=== PATIENT | male | born 1985 | race Caucasian/White ===

== ENCOUNTER 2020-07-06 08:05 | Emergency (ER) | payer OTHER, SELFPAY ==
[2020-07-06 08:13] VITALS: BP 143/64; PULSE 60; RESP 16; TEMP 36.4; O2SAT 100
--- NOTE | 2020-07-06 08:34 | ED.WOUNDLAC ---
HPI - Wound/Laceration General Chief Complaint: Skin/Abscess/Foreign Body Stated Complaint: lt foot laceration Source: patient and RN notes reviewed Limitations: no limitations History of Present Illness HPI narrative: The patient, previously mostly healthy runner, presents with foot laceration. Patient states he sustained a puncture/laceration of his plantar surface of his left foot when he scraped his foot across some newer [place] today. He comes in mild pain and bleeding from a 1 cm ,linear proximal based avulsion/flap laceration. Symptoms are mild, better with compression or elevation; tetanus status is not current. Patient declines suture repair, preferring alternative Related Data Allergies Allergy/AdvReac Type Severity Reaction Status Date / Time No Known Allergies Allergy Verified 07/06/20 08:19 Review of Systems Review of Systems: Narrative: The patient has been informed that they may have pre-hypertension or Hypertension based on a BP reading in the department. I recommend that the patient call the primary care provider listed on their discharge instructions or a physician of their choice this week to arrange follow up for further evaluation of possible pre-hypertension or Hypertension General/Constitutional: No weight loss,fever Eyes: N0: Redness,discharge Ears/Nose/Throat: No: Epistaxis,ear discharge Respiratory: Denies: Hemoptysis Gastrointestinal: No Vomiting, Bleeding-rectal Skin: No Lumps, eruption Neurologic: No Focal Weakness,Sz Hematologic: Denies: Petechiae/Purpura Psychiatric: No: Suicida ideationl All Other Systems: Reviewed and Negative [facility] Surgical History Surgical History History of aortic arch repair 1985 Family History Family History Father Heart disease Other Hypertension Social History Social History (Updated 06/04/20 @ 08:38 by Nona Galaviz CMA) Smoking status: Never smoker Second hand tobacco smoke exposure: No Alcohol intake: current Substance use: never Substance use type: does not use Additional occupation/education comments: Minister [employer] Comments At time of signature, agree with nursing past medical, surgical, social and family history. There is no relevant family history pertinent to the presenting complaint Exam Narrative: Exam Narrative: General Appearance: Well appearing, , Conjunctiva clear Mouth/Throat: Normal appearing, Normal lips Supple Respiratory: Airway patent, No respiratory distress Skin: Warm, Dry, Normal color; , fairly well approximating, proximal based 1 x 0.25 cm flap laceration/puncture at middle plantar metatarsal MS-foot: Normal strength -mostly intact, sl. limited toe flexion/extension by pain), Tenderness plantar middle metatrsal , with mild decreased ROM), no swelling Neurological: A&O x3, od, Normal affect Course Vital Signs Vital signs: Vital Signs Temperature 97.5 F L 07/06/20 08:13 Pulse Rate 60 07/06/20 08:13 Respiratory Rate 16 07/06/20 08:13 Blood Pressure 143/64 H 07/06/20 08:13 Pulse Oximetry 100 07/06/20 08:13 Temperature 97.5 F L 07/06/20 08:13 Pulse Rate 60 07/06/20 08:13 Respiratory Rate 16 07/06/20 08:13 Blood Pressure 143/64 H 07/06/20 08:13 Pulse Oximetry 100 07/06/20 08:13 Procedures Laceration Laceration 1: Date: 07/06/20 Site: lower extremity (L foot) Size (cm): 1 Description: flap Depth: simple, single layer Pre-repair: irrigated ====== Skin Level ====== Skin layer closed with: dermabond and steri strips ====== Subcutaneous Layer ====== ====== Muscle Layer ====== ====== Tendon Layer ====== Discharge Plan Discharge Clinical Impression: Laceration of foot, left Qualifiers: Encounter type: initial encounter Qualified Code(s): S91.312A - Marie
[2020-07-06] MEDS: TETANUS,DIPHTHERIA,AC PERTUSSIS ADULT (0.5 ML) BOOSTRIX IM (08:37)
== END 2020-07-06 09:03 | disposition home or self-care (01) ==
PROVIDERS: Emergency Provider Emergency Medicine; PCP Internal Medicine
DX: S91.312A Laceration without foreign body, left foot, initial encounter (principal); W22.8XXA Striking against or struck by other objects, initial encounter; Z23 Encounter for immunization
CPT/HCPCS: 12001; 90471; 90715; 99213; G0463

== ENCOUNTER 2021-05-04 10:37 | Emergency (ER) | payer OTHER, SELFPAY ==
--- NOTE | 2021-05-04 10:40 | ED.BACK ---
HPI - Back Pain/Injury General Chief Complaint: Back Pain/Injury Stated Complaint: lower back pain Time Seen by Provider: 05/04/21 10:40 Source: patient and RN notes reviewed History of Present Illness HPI Narrative: Patient is a 35-year-old male who presents the urgent care with complaints of left-sided low back pain. Patient states that radiates around to the left abdominal region with certain movements. Patient states he does go to the gym daily but denies of any recent extreme heavy lifting, pushing, pulling or strenuous activities. Patient states that he notices the pain with twisting/rotation and picking up his child. Patient denies of any nausea, vomiting, urinary symptoms. Patient denies of any history of kidney stones. Patient has used a heating pad, Tylenol and ibuprofen. States that he noticed the pain on which is since gotten worse. No other complaints. No acute distress noted. Patient aware plan of care. Some parts of this dictation were generated by voice recognition software and may contain typographical and/or grammatical inaccuracies. Related Data Allergies Allergy/AdvReac Type Severity Reaction Status Date / Time No Known Allergies Allergy Verified 07/06/20 08:19 Review of Systems Review of Systems: CONSTITUTIONAL: Denies fever, chills, or sweats. EYES: Denies visual changes, redness, or discharge. ENT: Denies rhinorrhea, congestion, sore throat, or otalgia. CARDIOVASCULAR: Denies chest pain, palpitations, or edema. RESPIRATORY: Denies cough or dyspnea. GASTROINTESTINAL: Denies abdominal pain, nausea, vomiting, or diarrhea. GENITOURINARY: Denies dysuria or hematuria. SKIN: Denies rash or itching. MUSCULOSKELETAL: Reports of low back pain NEUROLOGIC: Denies headache, numbness, or weakness. All other systems reviewed are negative, except as documented in HPI. [facility] Surgical History Surgical History History of aortic arch repair 1985 Family History Family History Father Heart disease Other Hypertension Social History Social History (Updated 06/04/20 @ 08:38 by Nona Galaviz CMA) Smoking status: Never smoker Second hand tobacco smoke exposure: No Alcohol intake: current Alcohol use details: Social Substance use: never Substance use type: does not use Additional occupation/education comments: [employer] Comments At the time of my signature, I reviewed and agree with the nursing past medical, surgical, social, and family history. There is no relevant family history pertinent to the patient complaint. Exam Narrative: GENERAL: This is a well-nourished, well-developed patient, in no apparent distress. HEAD: normocephalic, atraumatic. EYES: PERRL. Sclera clear/white. Vision is grossly intact. EARS: External ears normal NOSE: External nose normal with no obvious nasal discharge, nares without redness, no rhinorrhea. THROAT: Mucous membranes moist NECK: Neck supple CARDIOVASCULAR: Regular rate and rhythm without murmurs, gallops, or rubs. RESPIRATORY: Clear to auscultation. Breath sounds equal bilaterally. No wheezes, rales, or rhonchi. SKIN: warm, intact with no suspicious lesions or rash, good texture and turgor. NEURO: awake, alert, and oriented to person, place and time. There were no obvious focal neurologic abnormalities. EXTREMITIES: No clubbing, cyanosis, or edema. BACK: Nontender without deformity or crepitance. Course Vital Signs Vital signs: Vital Signs Temperature 97.5 F L 05/04/21 10:46 Pulse Rate 58 L 05/04/21 10:46 Respiratory Rate 16 05/04/21 10:46 Blood Pressure 140/87 05/04/21 10:46 Pulse Oximetry 100 05/04/21 10:46 Temperature 97.5 F L 05/04/21 10:46 Pulse Rate 58 L 05/04/21 10:46 Respiratory Rate 16 05/04/21 10:46 Blood Pressure 140/87 05/04/21 10:46 Pulse Oximetry 100 05/04/21
[2021-05-04 10:46] VITALS: BP 140/87; PULSE 58; RESP 16; TEMP 36.4; O2SAT 100
== END 2021-05-04 11:09 | disposition home or self-care (01) ==
PROVIDERS: Emergency Provider Nurse Practitioner Family; PCP Internal Medicine
DX: S39.012A Strain of muscle, fascia and tendon of lower back, initial encounter (principal); X58.XXXA Exposure to other specified factors, initial encounter
CPT/HCPCS: 99213; G0463